=== PATIENT | male | born 1955 | race Caucasian/White ===

== ENCOUNTER 2016-12-05 17:41 | Emergency (ER) | payer BC ==
[2016-12-05 18:02] VITALS: BP 142/79
--- NOTE | 2016-12-05 18:24 | EDM.PDOC ---
ED HPI GENERAL MEDICAL PROBLEM - General Chief Complaint: Skin Complaint Stated Complaint: SKIN COMPLAINT Time Seen by Provider: 12/05/16 18:14 Source of Information: Reports: Patient History Limitations: Reports: No Limitations - History of Present Illness INITIAL COMMENTS - FREE TEXT/NARRATIVE: 61-year-old male presents to the ED with a painful swelling on his right upper back. He states the last 3 days he said his give a squeezing he's got out some purulent cheesy material suggesting sebaceous cyst. Unfortuneately the areas now become much more reddened and inflamed and more painful particularly if he lies back or sits against his seat of his truck.He otherwise feels fine with no systemic signs of illness such as fever chills nausea or vomiting. Appetite is good. Onset: Gradual Onset Date: 12/02/16 Duration: Day(s): Location: Reports: Back (right upper back over his scapula.) Quality: Reports: Ache, Burning, Throbbing Severity: Moderate Improves with: Reports: None Worsens with: Reports: Other Context: Denies: Activity (touching the area), Exercise, Lifting, Sick Contact, Trauma, Other Associated Symptoms: Reports: No Other Symptoms. Denies: cough w sputum Upper Back Pain Score (Numeric/FACES): 8 - Related Data Allergies Allergy/AdvReac Type Severity Reaction Status Date / Time No Known Allergies Allergy Verified 03/21/16 19:17 Home Meds: Home Meds Zolpidem [Ambien] 5 mg PO BEDTIME 03/21/16 [History] Doxycycline [Vibramycin] 100 mg PO Q12HR #20 cap 12/05/16 [Rx] Past Medical History HEENT History: Reports: Allergic Rhinitis Musculoskeletal History: Reports: Osteoarthritis Neurological History: Reports: Other (See Below) Dermatologic History: Reports: Other (See Below) Other Dermatologic History: fatty tumors - Past Surgical History HEENT Surgical History: Reports: Other (See Below) Musculoskeletal Surgical History: Reports: Hip Replacement Social & Family History - Tobacco Use Smoking Status *Q: Never Smoker - Caffeine Use Caffeine Use: Reports: Soda - Recreational Drug Use Recreational Drug Use: No - Living Situation & Occupation Living situation: Reports: , with Spouse Occupation: Employed ED ROS GENERAL - Review of Systems Review Of Systems: See Below Constitutional: Denies: Fever, Chills, Malaise, Weakness, Fatigue, Decreased Appetite, Weight Loss HEENT: Reports: No Symptoms Respiratory: Reports: No Symptoms Cardiovascular: Reports: No Symptoms Endocrine: Reports: No Symptoms GI/Abdominal: Reports: No Symptoms : Reports: No Symptoms Skin: Reports: Rash, Erythema (right upper back over his scapula.) Neurological: Reports: No Symptoms Psychiatric: Reports: No Symptoms Hematologic/Lymphatic: Reports: No Symptoms Immunologic: Reports: No Symptoms ED EXAM, SKIN/RASH Exam: See Below Exam Limited By: No Limitations General Appearance: Alert, WD/WN, No Apparent Distress Skin: Erythema, Other (patient appears to have a large lipoma probably 20 cm x 14 cm in size with this infected lesion in the inferior midline of this lipoma. The lesion has a raised surrounding area suggestive of a basal cell carcinoma. By history it's been expressing sebaceous material. It is surrounding cellulitis of about 7 cm x 5 cm. Very warm to palpation and moderately painful to touch.) Location, Skin: Back (right upper back over his shoulder blade towards the midline.) Characteristics: Maculopapular, Necrotic (chronic center) Associated features: Warmth, Tenderness, Swelling, Induration, Inflammation ED SKIN PROCEDURES - Additional/Other Procedure(s) Other (Free Text) Procedure(s): necrotic skin lesion excised completely from right upper back under local anesthetic using lidocaine 1% with epinephrine. Elliptical incision made approximate 1.5 cm in length and dissection of a deep sebaceous cyst completed. Wound was then closed using 5 sutures of 3-0 Ethilon. Tissue was sent for pathological analysis. Patient will have sutures removed in 10-12 days time. Course - Vital Signs Last Recorded V/S: Last Vital Signs Temp 36.8 C 12/05/16 18:01 Pulse 83 12/05/16 18:01 Resp 20 12/05/16 18:01 BP 142/79 H 12/05/16 18:01 Pulse Ox 98 12/05/16 18:01 - Orders/Labs/Meds Orders: Active Orders 24 hr Category Date Time Status Peripheral IV Care [RC] . DIRECTED Care 12/05/16 18:25 Active Sodium Chloride 0.9% [Saline Flush] Med 12/05/16 18:25 Active 10 ml FLUSH ASDIRECTED PRN Peripheral IV Insertion Adult [OM.PC] Stat Oth 12/05/16 18:25 Ordered Medication Orders Sodium Chloride (Saline Flush) 10 ml FLUSH ASDIRECTED PRN PRN Reason: Keep Vein Open Last Admin: 12/05/16 18:35 Dose: 10 ml Meds: Medications Generic Name Dose Route Start Last Admin Trade Name Fariba PRN Reason Stop Dose Admin Sodium Chloride 10 ml 12/05/16 18:25 12/05/16 18:35 Saline Flush FLUSH 10 ml ASDIRECTED PRN Administration Keep Vein Open Discontinued Medications Generic Name Dose Route Start Last Admin Trade Name Fremilo PRN Reason Stop Dose Admin Doxycycline Hyclate 200 mg 12/05/16 19:10 Vibramycin PO 12/05/16 19:11 ONETIME ONE Ceftriaxone Sodium 2 gm/ 100 mls @ 200 mls/hr 12/05/16 18:25 12/05/16 18:37 Sodium Chloride IV 12/05/16 18:54 200 mls/hr ONETIME ONE Administration Lidocaine/Epinephrine 20 ml 12/05/16 18:25 12/05/16 18:50 Xylocaine 1% With Epinephrine 1:100,000 INJECT 12/05/16 18:26 20 ml ONETIME ONE Administration Lidocaine/Epinephrine Confirm 12/05/16 18:29 12/05/16 18:53 Xylocaine 1% With Epinephrine 1:100,000 Administered 12/05/16 18:30 Not Given Dose [address] .[facility] ONE - Radiology Interpretation Free Text/Narrative:: 61-year-old male presents the ED with an infected skin lesion right upper mid back over his scapula. He appears to have underlying lipoma in this area and has an developed an infected sebaceous cyst by history which is is been squeezing the last 2-3 nights and expressing material. It has become secondarily infected over the last 24 hours with surrounding cellulitis of 7 x 5 cm. The lesion itself has a necrotic center and raised umbilical dictated border suggestive of a basal cell carcinoma however. I'm therefore going to excise the lesion in toto and sent to pathology for definitive diagnosis. Plan will be to cleanse the wound and then anesthetized with 1% lidocaine with epinephrine and excise it Departure - Departure Time of Disposition: 19:10 Disposition: Home, Self-Care 01 Condition: Fair Clinical Impression: Infected sebaceous cyst of skin Cellulitis Qualifiers: Site of cellulitis of trunk: back - Discharge Information Prescriptions: Doxycycline [Vibramycin] 100 mg PO Q12HR #20 cap Referrals: Isha Samuel, [facility] [employer] [Primary Care Provider] - Forms: ED Department Discharge Additional Instructions: evaluation the emergent today in regards to secondary healing infected skin lesion right upper back. History suggests this is most likely a sebaceous cyst as the has been able to squeeze out a purulent material it's slightly cheesy suggesting sebum. The lesion has a auto appearance with a raised umbilicated border and central necrosis. There is surrounding infection developing around this lesion called cellulitis. You were therefore treated with IV antibiotics --Rocephin 2 g in the ED. Also first dorsal doxycycline 200 mg was given by mouth. The skin lesion was excised under local anesthetic completely. It will be sent for pathological analysis but clinically it appears to be a sebaceous cyst. Wound was closed with 5 sutures. Treatment at home is Tylenol or Motrin for pain relief. Antibiotic is to be doxycycline 100 mg twice daily for 10 days. Daily cleanse wound with soap and water. Showering is okay. Then apply topical antibiotic such as bacitracin or Polysporin to the wound and cover with bandage to keep clean. Sutures will need to be removed in 10-12 days' time. - My Orders Last 24 Hours: My Active Orders 12/05/16 18:25 Peripheral IV Care [RC] . DIRECTED Sodium Chloride 0.9% [Saline Flush] 10 ml FLUSH ASDIRECTED PRN Peripheral IV Insertion Adult [OM.PC] Stat - Assessment/Plan Last 24 Hours: My Active Orders 12/05/16 18:25 Peripheral IV Care [RC] . DIRECTED Sodium Chloride 0.9% [Saline Flush] 10 ml FLUSH ASDIRECTED PRN Peripheral IV Insertion Adult [OM.PC] Stat
[2016-12-05] MEDS ORDERED: cefTRIAXone 2 GM in Sodium Chloride 0.9% 100 ML IV ONE (18:25)
[2016-12-05] MEDS ORDERED: Lidocaine 1% with EPINEPHrine 1:100,000 20 ML MDV INJECT ONE (18:25)
[2016-12-05] MEDS ORDERED: Sodium Chloride 0.9% 10 ML Syringe FLUSH PRN (18:25)
[2016-12-05] MEDS ORDERED: Lidocaine 1% with EPINEPHrine 1:100,000 20 ML MDV ONE (18:29)
[2016-12-05] MEDS ORDERED: Doxycycline 100 MG Cap PO ONE (19:10)
== END 2016-12-05 19:20 | disposition home or self-care (01) ==
LOC: JD.ED 17:41
DX: L72.3 Sebaceous cyst (principal); L08.9 Local infection of the skin and subcutaneous tissue, unspecified; M19.90 Unspecified osteoarthritis, unspecified site; Z96.649 Presence of unspecified artificial hip joint
CPT/HCPCS: 11042; 12001; 96365; 99284; A9270; J0696; J7030; J7050; 11402

== ENCOUNTER 2017-04-29 08:33 | Inpatient (IN) | payer BC, OTHER ==
[~2017-04-29 08:33] MED LIST: Dexamethasone 4 MG/ML SDV ONE; Lactated Ringers 1,000 ML IV SCH; Lidocaine 1% 4 ML ONE; Lidocaine 1%/Sod Bicarbonate in NS 8.4% 1 ML Syringe IDERM PRN; Morphine PF 10 MG/10 ML SDV ONE; Ondansetron 4 MG/2 ML SDV ONE; Propofol 200 MG/20 ML SDV ONE; Sodium Chloride 0.9% 10 ML Syringe FLUSH PRN; fentaNYL 100 MCG/2 ML SDV ONE
[2017-04-29] MEDS ORDERED: Midazolam 1 MG/ML 2 ML SDV ONE (08:41)
[2017-04-29] MEDS ORDERED: ceFAZolin 1 GM Vial ONE (08:42)
--- NOTE | 2017-04-29 09:08 | PCM.PREANE ---
Preanesthetic Assessment - Procedure Proposed Procedure: Right total hip replacement - Anesthesia/Transfusion/Family Hx Anesthesia History: Prior Anesthesia Without Reaction Family History of Anesthesia Reaction: No Transfusion History: Prior Transfusion Without Reaction Additional History: CLBP, fibromyalagia - Review of Systems General: No Symptoms Pulmonary: No Symptoms Cardiovascular: No Symptoms Gastrointestinal: No Symptoms Neurological: No Symptoms Other: Reports: None - Physical Assessment NPO Status Date: 04/28/17 NPO Status Time: 22:30 Pulse: 78 O2 Sat by Pulse Oximetry: 96 Respiratory Rate: 16 Blood Pressure: 142/92 Temperature: 37.0 C Height: 1.75 m Weight: 63.231 kg ASA Class: 2 Mental Status: Alert & Oriented x3 Airway Class: Mallampati = 1 Dentition: Reports: Normal Dentition Thyro-Mental Finger Breadths: 3 Mouth Opening Finger Breadths: 3 ROM/Head Extension: Full Lungs: Clear to Auscultation, Normal Respiratory Effort Cardiovascular: Regular Rate, Regular Rhythm - Lab Values: Laboratory Last Values MRSA (PCR) Negative 04/16/17 16:56 - Allergies Allergies/Adverse Reactions: Allergies Allergy/AdvReac Type Severity Reaction Status Date / Time No Known Allergies Allergy Verified 04/26/17 14:15 - Blood Blood Available: Yes - Anesthesia Plan Pre-Op Medication Ordered: None - Acknowledgements Anesthesia Type Planned: Spinal (with duramorph) Pt an Appropriate Candidate for the Planned Anesthesia: Yes Alternatives and Risks of Anesthesia Discussed w Pt/Guardian: Yes Pt/Guardian Understands and Agrees with Anesthesia Plan: Yes PreAnesthesia Questionnaire HEENT History: Reports: None Cardiovascular History: Reports: None Respiratory History: Reports: None Gastrointestinal History: Reports: None Genitourinary History: Reports: None Musculoskeletal History: Reports: Arthritis, Fibromyalgia Other Musculoskeletal History: Right finger mass, right hip pain, low back pain Neurological History: Reports: None Psychiatric History: Reports: Other (See Below) Other Psychiatric History: Insomnia Endocrine/Metabolic History: Reports: None Hematologic History: Reports: None Immunologic History: Reports: None Oncologic (Cancer) History: Reports: None Dermatologic History: Reports: Psoriasis Other Dermatologic History: fatty tumors - Infectious Disease History Infectious Disease History: Reports: None - Past Surgical History Head Surgeries/Procedures: HEENT Surgical History: Reports: None Cardiovascular Surgical History: Reports: None Respiratory Surgical History: Reports: None GI Surgical History: Reports: Colonoscopy Endocrine Surgical History: Reports: None Neurological Surgical History: Reports: None Other Musculoskeletal Surgeries/Procedures:: Left total hip replacement Oncologic Surgical History: Reports: None Dermatological Surgical History: Reports: None - SUBSTANCE USE Smoking Status *Q: Never Smoker Second Hand Smoke Exposure: No Recreational Drug Use History: No - HOME MEDS Home Medications: Home Meds Zolpidem [Ambien] 5 - 10 mg PO BEDTIME PRN 03/21/16 [History] Acetaminophen [Tylenol] 325 - 975 mg PO Q4H PRN 04/26/17 [History] Ascorbic Acid [Vitamin C] 1,000 mg PO DAILY 04/26/17 [History] Betamethasone Dipropionate [Diprolene 0.05% Gel] 1 applic TOP ASDIRECTED [History] Cyclobenzaprine [Flexeril] 10 mg PO TID PRN 04/26/17 [History] Naproxen Sodium [Aleve] 220 mg PO BID PRN 04/26/17 [History] - CURRENT (IN HOUSE) MEDS Current Meds: Current Medications Bisacodyl (Dulcolax) 5 mg PO DAILY PRN PRN Reason: Constipation Morphine Sulfate 8 mg/Epinephrine HCl 0.3 mg/Cefuroxime Sodium 750 mg/Ketorolac Tromethamine 30 mg/Sodium Chloride 27.9 ml 0 mg .XX ONETIME ONE Stop: 04/29/17 09:31 Cyclobenzaprine HCl (Flexeril) 10 mg PO TID PRN PRN Reason: Spasms Diphenhydramine HCl (Benadryl) 25 mg IVPUSH Q4H PRN PRN Reason: Nausea Docusate Sodium (Colace) 100 mg PO BID UMA Famotidine (Pepcid) 20 mg PO BID [facility] Lactated Ringer's (Ringers, Lactated) 1,000 mls @ 125 mls/hr IV ASDIRECTED [facility] Stop: 04/29/17 23:00 Cefazolin Sodium/Dextrose 2 gm (/ Premix) 50 mls @ 100 mls/hr IV Q8H [facility] Stop: 04/29/17 23:29 Ketorolac Tromethamine (Toradol) 15 mg IVPUSH Q6H PRN PRN Reason: Pain Lidocaine/Sodium Bicarbonate (Buffered Lidocaine 1% In Ns 8.4%) 0.25 ml IDERM ONETIME PRN PRN Reason: Prior to IV Start Stop: 04/29/17 18:00 Magnesium Hydroxide (Milk Of Magnesia) 30 ml PO BID PRN PRN Reason: Constipation Morphine Sulfate (Morphine) 2 mg IVPUSH Q2H PRN PRN Reason: Breakthrough Pain Naloxone HCl (Narcan) 0.1 mg IVPUSH Q5M PRN PRN Reason: Oversedation Oxycodone/Acetaminophen (Percocet 325-5 Mg) 1 - 2 tab PO Q4H PRN PRN Reason: Pain Rivaroxaban (Xarelto) 10 mg PO DAILY UMA Senna (Senna) 8.6 mg PO BID PRN PRN Reason: Constipation Sodium Chloride (Saline Flush) 10 ml FLUSH ASDIRECTED PRN PRN Reason: Keep Vein Open Stop: 04/29/17 18:00 Discontinued Medications Bupivacaine HCl (Marcaine 0.25%) Confirm Administered Dose 30 ml .ROUTE .STK- MED ONE Stop: 04/29/17 08:43 Cefazolin Sodium (Ancef) Confirm Administered Dose 2 gm .ROUTE .STK-MED ONE Stop: 04/29/17 08:30 Cefazolin Sodium (Ancef) Confirm Administered Dose 2 gm .ROUTE .STK-MED ONE Stop: 04/29/17 08:43 Dexamethasone (Dexamethasone) Confirm Administered Dose 4 mg .ROUTE .STK-MED ONE Stop: 04/29/17 08:30 Fentanyl (Sublimaze) Confirm Administered Dose 100 mcg .ROUTE .STK-MED ONE Stop: 04/29/17 08:27 Lidocaine HCl (Xylocaine-Mpf 1%) Confirm Administered Dose 4 mls @ as directed .ROUTE .STK-MED ONE Stop: 04/29/17 08:30 Iodine (Iodine 2% Mild Tincture) Confirm Administered Dose 30 ml .ROUTE .STK- MED ONE Stop: 04/29/17 08:43 Midazolam HCl (Versed 1 Mg/Ml) Confirm Administered Dose 2 mg .ROUTE .STK-MED ONE Stop: 04/29/17 08:42 Morphine Sulfate (Duramorph Pf) Confirm Administered Dose 10 mg .ROUTE .STK-MED ONE Stop: 04/29/17 08:27 Ondansetron HCl (Zofran) Confirm Administered Dose 4 mg .ROUTE .STK-MED ONE Stop: 04/29/17 08:30 Propofol (Diprivan 20 Ml) Confirm Administered Dose 600 mg .ROUTE .STK-MED ONE Stop: 04/29/17 08:27 Tranexamic Acid (Cyklokapron) Confirm Administered Dose 1,000 mg .ROUTE .STK- MED ONE Stop: 04/29/17 08:42 Vancomycin HCl (Vancomycin) Confirm Administered Dose 1 gm .ROUTE .STK-MED ONE Stop: 04/29/17 08:42
[2017-04-29] MEDS: ceFAZolin 1 GM Vial ONE ×2 (10:26→10:43)
[2017-04-29] MEDS: Iodine/Sodium Iodide 2% Tincture 30 ML Bottle ONE ×2 (10:27→10:41)
[2017-04-29] MEDS: Morphine 8 MG, EPINEPHrine 0.3 MG, Cefuroxime 750 MG, Ketorolac 30 MG, Sodium Chloride ... ONE ×10 (10:28→10:48)
[2017-04-29] MEDS: Bupivacaine 0.25% 30 ML SDV ONE ×2 (10:29→10:49)
[2017-04-29] MEDS ORDERED: ePHEDrine 50 MG/ML SDV ONE (10:30)
[2017-04-29] MEDS: Vancomycin 1 GM SDV ONE ×2 (10:30→10:52)
[2017-04-29] MEDS ORDERED: fentaNYL 100 MCG/2 ML SDV ONE (10:50)
[2017-04-29] MEDS ORDERED: Naloxone 0.4 MG/ML SDV IVPUSH PRN (11:00)
[2017-04-29] MEDS ORDERED: Ketorolac 15 MG/ML SDV IVPUSH PRN (11:00)
[2017-04-29] MEDS ORDERED: Magnesium Hydroxide 400 MG/5 ML Susp 30 ML Cup PO PRN (11:00)
[2017-04-29] MEDS ORDERED: diphenhydrAMINE 50 MG/ML SDV IVPUSH PRN ×2 (11:00→11:28)
[2017-04-29] MEDS ORDERED: Morphine 4 MG/ML Syringe IVPUSH PRN (11:00)
[2017-04-29] MEDS ORDERED: Bisacodyl 5 MG Tab PO PRN (11:00)
[2017-04-29] MEDS ORDERED: Sennosides 8.6 MG Tab PO PRN (11:00)
--- NOTE | 2017-04-29 11:22 | PCM.POSTAN ---
POST ANESTHESIA ASSESSMENT - MENTAL STATUS Mental Status: Alert, Oriented - VITAL SIGNS Pulse Rate: 84 SaO2: 100 Resp Rate: 17 Blood Pressure: 102/64 Temperature: 36.3 C - RESPIRATORY Respiratory Status: Respiratory Rate WNL, Airway Patent, O2 Saturation Stable, Supplemental Oxygen - CARDIOVASCULAR CV Status: Pulse Rate WNL, Blood Pressure Stable - GASTROINTESTINAL GI Status: No Symptoms - PAIN Pain Score: 0 - POST OP HYDRATION Hydration Status: Adequate & Stable
[2017-04-29] MEDS ORDERED: Ondansetron 4 MG/2 ML SDV IVPUSH PRN (11:28)
[2017-04-29] MEDS ORDERED: Meperidine PF 50 MG/ML Syringe IVPUSH PRN (11:28)
--- NOTE | 2017-04-29 11:55 | CR ---
Pelvis and right hip: AP view of the pelvis was obtained as well as lateral view of the right hip. Bilateral hip prosthesis are seen. Component on the right side has been placed recently. Components of both prosthesis are maintained. Underlying bony structures are intact. Soft tissue air is noted around the right hip prosthesis compatible with recent surgery. Impression: 1. Satisfactory radiographic appearance of recently placed right hip prosthesis. 2. Old left hip prosthesis is noted which appears within normal limits. Diagnostic code #2
[2017-04-29] MEDS ORDERED: Zolpidem 10 MG Tab PO PRN (12:11)
[2017-04-29] MEDS ORDERED: BETAMETHASONE DIPROPIONATE TOP SCH (12:15)
--- NOTE | 2017-04-29 16:00 | PCM.CONS ---
H&P History of Present Illness - General Date of Service: 04/29/17 Admit Problem/Dx: Admission Diagnosis/Problem Admission Diagnosis/Problem Osteoarthritis of hip Source of Information: Patient, Provider, RN, RN Notes Reviewed, Other ( surgical notes ) - History of Present Illness Initial Comments - Free Text/Narative: Teddy Medina is a 61 yo male patient of Dr. Messina who is post-operative day 0 of right DONNA. Hospital medicine was consulted for post-operative medical care. At this time he is resting comfortably in bed. Pain is completely absent. He denies any chest pain, shortness of breath, palpitations, nausea, or vomiting. He carries a history of: Arthritis, fibromyalgia, insomnia, psoriasis, prior left DONNA. He was never a smoker. He is a full code. His primary care provider is Isha Samuel at [facility]. - Related Data Allergies/Adverse Reactions: Allergies Allergy/AdvReac Type Severity Reaction Status Date / Time No Known Allergies Allergy Verified 04/29/17 09:25 Home Medications: Home Meds Zolpidem [Ambien] 5 - 10 mg PO BEDTIME PRN 03/21/16 [History] Acetaminophen [Tylenol] 325 - 975 mg PO Q4H PRN 04/26/17 [History] Ascorbic Acid [Vitamin C] 1,000 mg PO DAILY 04/26/17 [History] Betamethasone Dipropionate [Diprolene 0.05% Gel] 1 applic TOP ASDIRECTED [History] Cyclobenzaprine [Flexeril] 10 mg PO TID PRN 04/26/17 [History] Naproxen Sodium [Aleve] 220 mg PO BID PRN 04/26/17 [History] Cholecalciferol (Vitamin D3) [Vitamin D] 5,000 mg PO DAILY 04/29/17 [History] Past Medical History HEENT History: Reports: None Cardiovascular History: Reports: None Respiratory History: Reports: None Gastrointestinal History: Reports: None Genitourinary History: Reports: None Musculoskeletal History: Reports: Arthritis, Fibromyalgia Other Musculoskeletal History: Right finger mass, right hip pain, lower back pain Neurological History: Reports: None Psychiatric History: Reports: Other (See Below) Other Psychiatric History: Insomnia Endocrine/Metabolic History: Reports: None Hematologic History: Reports: None Immunologic History: Reports: None Oncologic (Cancer) History: Reports: None Dermatologic History: Reports: Psoriasis Other Dermatologic History: fatty tumors - Infectious Disease History Infectious Disease History: Reports: Chicken Pox, Measles, Mumps - Past Surgical History HEENT Surgical History: Reports: None Cardiovascular Surgical History: Reports: None Respiratory Surgical History: Reports: None GI Surgical History: Reports: Colonoscopy Endocrine Surgical History: Reports: None Neurological Surgical History: Reports: None Other Musculoskeletal Surgeries/Procedures:: Left total hip replacement, right total hip performed 04/29/17 Oncologic Surgical History: Reports: None Dermatological Surgical History: Reports: None Social & Family History - Family History Family Medical History: Noncontributory - Tobacco Use Smoking Status *Q: Never Smoker Second Hand Smoke Exposure: No - Caffeine Use Caffeine Use: Reports: Soda - Recreational Drug Use Recreational Drug Use: No Drug Use in Last 12 Months: No - Living Situation & Occupation Living situation: Reports: , with Spouse Occupation: Employed H&P Review of Systems - Review of Systems: Review Of Systems: See Below General: Reports: No Symptoms HEENT: Reports: No Symptoms Pulmonary: Reports: No Symptoms Cardiovascular: Reports: No Symptoms Gastrointestinal: Reports: No Symptoms Genitourinary: Reports: No Symptoms Musculoskeletal: Reports: No Symptoms, Joint Swelling (right hip ) Skin: Reports: No Symptoms Psychiatric: Reports: No Symptoms Neurological: Reports: No Symptoms Hematologic/Lymphatic: Reports: No Symptoms Immunologic: Reports: No Symptoms Exam - Exam Exam: See Below - Vital Signs Vital Signs: Last Vital Signs Temp 96.6 F 04/29/17 12:00 Pulse 71 04/29/17 12:31 Resp 11 L 04/29/17 12:00 BP 90/75 04/29/17 14:03 Pulse Ox 97 04/29/17 12:32 Weight: 139 lb - Exam Quality Assessment: Supplemental Oxygen, Urinary Catheter, DVT Prophylaxis General: Alert, Oriented, Cooperative HEENT: PERRLA, Hearing Intact, Mucosa Moist & [place], Nares Patent, Normal Nasal Septum, Posterior Pharynx Clear, Conjunctiva Clear, EOMI, EACs Clear, TMs Clear Neck: Supple, Trachea Midline. No: JVD Lungs: Clear to Auscultation, Normal Respiratory Effort Cardiovascular: Regular Rate, Regular Rhythm GI/Abdominal Exam: Normal Bowel Sounds, Soft, Non-Tender, No Organomegaly, No Distention, No Abnormal Bruit, No Mass, Pelvis Stable (Male) Exam: Deferred Rectal (Males) Exam: Deferred Back Exam: Normal Inspection, Full Range of Motion Extremities: No Pedal Edema, Normal Capillary Refill, Leg Pain, Limited Range of Motion, Other (LOYDA bandage on right leg. Bandages is dry and intact. Cooling pack in place ) Peripheral Pulses: 2+: Radial (L), Radial (R), Posterior Tibial (L), Posterior Tibial (R), Dorsalis Pedis (L), Dorsalis Pedis (R) Skin: Warm, Dry, Intact Neurological: Cranial Nerves Intact (grossly ) Neuro Extensive - Mental Status: Alert, Oriented x3, Normal Mood/Affect, Normal Cognition, Memory Intact Psychiatric: Alert, Normal Affect, Normal Mood - Patient Data Lab Results Last 24 hrs: Laboratory Results - last 24 hr 04/29/17 Range/Units 09:05 Blood Type O POSITIVE Gel Antibody Screen Negative Consult PN Assessment/Plan POD#: 0 Procedures: Procedures DEMAR SUBQ TISSUE 20 SQ CM/< (12/05/16) EMERGENCY DEPT VISIT (12/05/16) EMERGENCY DEPT VISIT (03/21/16) IMMUNIZATION ADMIN (01/25/15) PT EVALUATION (07/01/13) RPR F/E/E/N/L/M 2.5 CM/< (01/25/15) RPR S/N/AX/GEN/TRNK 2.5CM/< (12/05/16) TDAP VACCINE 7 YRS/> IM (01/25/15) THER/PROPH/DIAG IV INF INIT (12/05/16) THERAPEUTIC EXERCISES (07/17/13) (1) S/P total hip arthroplasty SNOMED Code(s): 416021005252 Code(s): Z96.649 - PRESENCE OF UNSPECIFIED ARTIFICIAL HIP JOINT Priority: High Current Visit: Yes Qualifiers: Laterality: right Qualified Code(s): Z96.641 - Presence of right artificial hip joint (2) Osteoarthritis SNOMED Code(s): 482697583 Code(s): M19.90 - UNSPECIFIED OSTEOARTHRITIS, UNSPECIFIED SITE Priority: High Current Visit: Yes Qualifiers: Osteoarthritis location: hip Osteoarthritis type: primary Laterality: right Qualified Code(s): M16.11 - Unilateral primary osteoarthritis, right hip (3) Arthritis SNOMED Code(s): 4501415 Code(s): M19.90 - UNSPECIFIED OSTEOARTHRITIS, UNSPECIFIED SITE Priority: Low Current Visit: No (4) Fibromyalgia SNOMED Code(s): 353102176 Code(s): M79.7 - FIBROMYALGIA Priority: Low Current Visit: No (5) Insomnia SNOMED Code(s): 456080324 Code(s): G47.00 - INSOMNIA, UNSPECIFIED Priority: Low Current Visit: No Qualifiers: Insomnia type: unspecified Qualified Code(s): G47.00 - Insomnia, unspecified (6) Psoriasis SNOMED Code(s): 2162217 Code(s): L40.9 - PSORIASIS, UNSPECIFIED Priority: Low Current Visit: No Problem List Initiated/Reviewed/Updated: Yes Plan: I/P: Acute: S/P right total hip arthroplasty - post-operative day 0 -DVT prophylaxis and pain management per primary care team -PT/OT -IS/RT -Monitor oxygen saturation -Titrate oxygen as needed -Vital signs stable -Monitor labs -Pre-operative Hgb was 13.9 -Pre-operative eGFR was >90 Osteoarthritis of right hip -Pain management per primary care team Chronic (home meds): Arthritis Fibromyalgia Insomnia Psoriasis Plan: CM for discharge planning GI prophylaxis Home medications as indicated Other orders as listed above Routine AM labs He is a full code. His PCP is Isha Samuel at [facility] Thank you for allowing us to participate in the care of this patient!! Total time spent with patient 25 minutes Requesting Provider: Dr. Messina Date Consult Requested: 04/29/17 Reason for Consult: Post-operative medical management Patient History Reviewed: Yes Admission H&P Reviewed: Yes Time Spent (in minutes): 25
[2017-04-29] MEDS: ceFAZolin 2 GM in Premix Bag 1 BAG IV SCH ×2 (16:56→23:56)
[2017-04-29] MEDS: Famotidine 20 MG Tab PO SCH (20:14)
[2017-04-29] MEDS: Docusate Sodium 100 MG Cap PO SCH (20:14)
[2017-04-29] MEDS: Acetaminophen/oxyCODONE 325-5 MG Tab PO PRN (20:14)
[2017-04-29] MEDS: Cyclobenzaprine 10 MG Tab PO PRN (23:14)
[2017-04-30] MEDS: Acetaminophen/oxyCODONE 325-5 MG Tab PO PRN ×3 (03:17→14:05)
--- NOTE | 2017-04-30 06:23 | PCM.CONSN ---
- General Info Date of Service: 04/30/17 Admission Dx/Problem (Free Text): Admission Diagnosis/Problem Admission Diagnosis/Problem Osteoarthritis of hip Subjective Update: In to see Teddy today. He is doing well. PT/OT reports no problems. He did have some difficulty with voiding this AM. Flomax was given and oral fluids were pushed. He responded well to this. He denies any other symptoms. No complaints currently. Vitals and labs have been good. PT/OT has no concerns. Functional Status: Reports: Pain Controlled, Tolerating Diet, Ambulating, Urinating, Incentive Spirometry. Denies: New Symptoms - Review of Systems General: Reports: No Symptoms HEENT: Reports: No Symptoms Pulmonary: Reports: No Symptoms Cardiovascular: Reports: No Symptoms Gastrointestinal: Reports: No Symptoms Genitourinary: Reports: No Symptoms Musculoskeletal: Reports: Joint Pain Skin: Reports: No Symptoms Neurological: Reports: No Symptoms Psychiatric: Reports: No Symptoms - Patient Data Vitals - Most Recent: Last Vital Signs Temp 98.1 F 04/30/17 03:23 Pulse 98 04/30/17 03:23 Resp 16 04/30/17 03:23 BP 115/70 04/30/17 03:23 Pulse Ox 97 04/30/17 03:23 Weight - Most Recent: 147 lb 4 oz I&O - Last 24 Hours: Intake & Output 04/29/17 04/29/17 04/30/17 14:59 22:59 06:59 Intake Total 390 1200 800 Output Total 375 1150 1020 Balance 15 50 -220 Lab Results Last 24 Hours: Laboratory Results - last 24 hr 04/29/17 Range/Units 09:05 Blood Type O POSITIVE Gel Antibody Screen Negative Med Orders - Current: Current Medications Bisacodyl (Dulcolax) 5 mg PO DAILY PRN PRN Reason: Constipation Cholecalciferol (Vitamin D3) 5,000 units PO DAILY [facility] Cyclobenzaprine HCl (Flexeril) 10 mg PO TID PRN PRN Reason: Spasms Last Admin: 04/29/17 23:14 Dose: 10 mg Diphenhydramine HCl (Benadryl) 25 mg IVPUSH Q4H PRN PRN Reason: Nausea Docusate Sodium (Colace) 100 mg PO BID [facility] Last Admin: 04/29/17 20:14 Dose: 100 mg Famotidine (Pepcid) 20 mg PO BID [facility] Last Admin: 04/29/17 20:14 Dose: 20 mg Cefazolin Sodium/Dextrose 2 gm (/ Premix) 50 mls @ 100 mls/hr IV Q8H [facility] Stop: 04/30/17 09:14 Last Admin: 04/29/17 23:56 Dose: 100 mls/hr Ketorolac Tromethamine (Toradol) 15 mg IVPUSH Q6H PRN PRN Reason: Pain Last Admin: 04/29/17 17:56 Dose: 15 mg Magnesium Hydroxide (Milk Of Magnesia) 30 ml PO BID PRN PRN Reason: Constipation Morphine Sulfate (Morphine) 2 mg IVPUSH Q2H PRN PRN Reason: Breakthrough Pain Naloxone HCl (Narcan) 0.1 mg IVPUSH Q5M PRN PRN Reason: Oversedation Oxycodone/Acetaminophen (Percocet 325-5 Mg) 1 - 2 tab PO Q4H PRN PRN Reason: Pain Last Admin: 04/30/17 03:17 Dose: 2 tab Betamethasone Dipropionate [ Diprolene 0.05% Gel] 1 Applic 0 each TOP ASDIRECTED [facility] Rivaroxaban (Xarelto) 10 mg PO DAILY [facility] Senna (Senna) 8.6 mg PO BID PRN PRN Reason: Constipation Zolpidem Tartrate (Ambien) 5 - 10 mg PO BEDTIME PRN PRN Reason: Insomnia Last Admin: 04/29/17 23:14 Dose: 10 mg Discontinued Medications Bupivacaine HCl (Marcaine 0.25%) Confirm Administered Dose 30 ml .ROUTE .STK- MED ONE Stop: 04/29/17 08:43 Last Admin: 04/29/17 10:49 Dose: 30 ml Cefazolin Sodium (Ancef) Confirm Administered Dose 2 gm .ROUTE .STK-MED ONE Stop: 04/29/17 08:30 Last Admin: 04/29/17 10:43 Dose: 2 gm Cefazolin Sodium (Ancef) Confirm Administered Dose 2 gm .ROUTE .STK-MED ONE Stop: 04/29/17 08:43 Morphine Sulfate 8 mg/Epinephrine HCl 0.3 mg/Cefuroxime Sodium 750 mg/Ketorolac Tromethamine 30 mg/Sodium Chloride 27.9 ml 0 mg .XX ONETIME ONE Stop: 04/29/17 09:31 Last Admin: 04/29/17 10:48 Dose: 788.3 mg Dexamethasone (Dexamethasone) Confirm Administered Dose 4 mg .ROUTE .STK-MED ONE Stop: 04/29/17 08:30 Diphenhydramine HCl (Benadryl) 25 mg IVPUSH Q6H PRN PRN Reason: Pruritis Stop: 04/29/17 18:00 Last Admin: 04/29/17 13:08 Dose: 25 mg Ephedrine Sulfate (Ephedrine Sulfate) Confirm Administered Dose 50 mg .ROUTE .STK-MED ONE Stop: 04/29/17 10:31 Fentanyl (Sublimaze) Confirm Administered Dose 100 mcg .ROUTE .STK-MED ONE Stop: 04/29/17 08:27 Fentanyl (Sublimaze) Confirm Administered Dose 100 mcg .ROUTE .STK-MED ONE Stop: 04/29/17 10:51 Lactated Ringer's (Ringers, Lactated) 1,000 mls @ 125 mls/hr IV ASDIRECTED [facility] Stop: 04/29/17 23:00 Last Admin: 04/29/17 09:00 Dose: 125 mls/hr Lidocaine HCl (Xylocaine-Mpf 1%) Confirm Administered Dose 4 mls @ as directed .ROUTE .STK-MED ONE Stop: 04/29/17 08:30 Iodine (Iodine 2% Mild Tincture) Confirm Administered Dose 30 ml .ROUTE .STK- MED ONE Stop: 04/29/17 08:43 Last Admin: 04/29/17 10:41 Dose: 18 ml Lidocaine/Sodium Bicarbonate (Buffered Lidocaine 1% In Ns 8.4%) 0.25 ml IDERM ONETIME PRN PRN Reason: Prior to IV Start Stop: 04/29/17 18:00 Last Admin: 04/29/17 07:59 Dose: 0.25 ml Meperidine HCl (Demerol) 12.5 mg IVPUSH ONETIME PRN PRN Reason: Shivering Stop: 04/29/17 16:00 Midazolam HCl (Versed 1 Mg/Ml) Confirm Administered Dose 2 mg .ROUTE .STK-MED ONE Stop: 04/29/17 08:42 Morphine Sulfate (Duramorph Pf) Confirm Administered Dose 10 mg .ROUTE .STK-MED ONE Stop: 04/29/17 08:27 Ondansetron HCl (Zofran) Confirm Administered Dose 4 mg .ROUTE .STK-MED ONE Stop: 04/29/17 08:30 Ondansetron HCl (Zofran) 4 mg IVPUSH ONETIME PRN PRN Reason: Nausea/Vomiting Stop: 04/29/17 16:00 Propofol (Diprivan 20 Ml) Confirm Administered Dose 600 mg .ROUTE .STK-MED ONE Stop: 04/29/17 08:27 Sodium Chloride (Saline Flush) 10 ml FLUSH ASDIRECTED PRN PRN Reason: Keep Vein Open Stop: 04/29/17 18:00 Tranexamic Acid (Cyklokapron) Confirm Administered Dose 1,000 mg .ROUTE .STK- MED ONE Stop: 04/29/17 08:42 Last Admin: 04/29/17 10:51 Dose: 1,000 mg Vancomycin HCl (Vancomycin) Confirm Administered Dose 1 gm .ROUTE .STK-MED ONE Stop: 04/29/17 08:42 Last Admin: 04/29/17 10:52 Dose: 1 gm - Exam Quality Assessment: DVT Prophylaxis General: Alert, Oriented, Cooperative, No Acute Distress HEENT: Pupils Equal, Pupils Reactive, EOMI, Mucous Membr. Moist/[place] Neck: Supple, Trachea Midline, No JVD Lungs: Clear to Auscultation, Normal Respiratory Effort Cardiovascular: Regular Rate, Regular Rhythm GI/Abdominal Exam: Normal Bowel Sounds, Soft, Non-Tender, No Organomegaly, No Distention, No Abnormal Bruit, No Mass, Pelvis Stable (Male) Exam: Deferred Back Exam: Normal Inspection, Full Range of Motion Extremities: No Pedal Edema, Normal Capillary Refill, Leg Pain, Limited Range of Motion, Other (Richard bandage in place on right leg. Cooling pack in place ) Peripheral Pulses: 2+: Radial (L), Radial (R), Dorsalis Pedis (L), Dorsalis Pedis (R) Skin: Warm, Dry, Intact Wound/Incisions: Dressing Dry and Intact, No Drainage Neurological: No New Focal Deficit Psy/Mental Status: Alert, Normal Affect, Normal Mood Consult PN Assessment/Plan POD#: 1 Procedures: Procedures DEMAR SUBQ TISSUE 20 SQ CM/< (12/05/16) EMERGENCY DEPT VISIT (12/05/16) EMERGENCY DEPT VISIT (03/21/16) IMMUNIZATION ADMIN (01/25/15) PT EVALUATION (07/01/13) RPR F/E/E/N/L/M 2.5 CM/< (01/25/15) RPR S/N/AX/GEN/TRNK 2.5CM/< (12/05/16) TDAP VACCINE 7 YRS/> IM (01/25/15) THER/PROPH/DIAG IV INF INIT (12/05/16) THERAPEUTIC EXERCISES (07/17/13) (1) S/P total hip arthroplasty SNOMED Code(s): 151205806437 Code(s): Z96.649 - PRESENCE OF UNSPECIFIED ARTIFICIAL HIP JOINT Priority: High Current Visit: Yes Qualifiers: Laterality: right Qualified Code(s): Z96.641 - Presence of right artificial hip joint (2) Osteoarthritis SNOMED Code(s): 613962049 Code(s): M19.90 - UNSPECIFIED OSTEOARTHRITIS, UNSPECIFIED SITE Priority: High Current Visit: Yes Qualifiers: Osteoarthritis location: hip Osteoarthritis type: primary Laterality: right Qualified Code(s): M16.11 - Unilateral primary osteoarthritis, right hip (3) Arthritis SNOMED Code(s): 1395133 Code(s): M19.90 - UNSPECIFIED OSTEOARTHRITIS, UNSPECIFIED SITE Priority: Low Current Visit: No (4) Fibromyalgia SNOMED Code(s): 333423892 Code(s): M79.7 - FIBROMYALGIA Priority: Low Current Visit: No (5) Insomnia SNOMED Code(s): 163435801 Code(s): G47.00 - INSOMNIA, UNSPECIFIED Priority: Low Current Visit: No Qualifiers: Insomnia type: unspecified Qualified Code(s): G47.00 - Insomnia, unspecified (6) Psoriasis SNOMED Code(s): 3389814 Code(s): L40.9 - PSORIASIS, UNSPECIFIED Priority: Low Current Visit: No Problem List Initiated/Reviewed/Updated: Yes Plan: I/P: Acute: S/P right total hip arthroplasty - post-operative day 1 -DVT prophylaxis and pain management per primary care team -PT/OT -IS/RT -Monitor oxygen saturation -Titrate oxygen as needed -Vital signs stable -Monitor labs -Pre-operative Hgb was 13.9, now 12.2 -Pre-operative eGFR was >90, now >60 Osteoarthritis of right hip -Pain management per primary care team Urinary retention, resolved -Straight cath'ed by nursing -Add flomax 0.4 -Push oral fluids -Has voided several times now Chronic (home meds): Arthritis Fibromyalgia Insomnia Psoriasis Plan: CM for discharge planning GI prophylaxis Home medications as indicated Other orders as listed above Routine AM labs He is a full code. His PCP is Isha Samuel at [facility] Thank you for allowing us to participate in the care of this patient!! From a hospitalist standpoint he is clear for discharge pending primary team agreement.
--- NOTE | 2017-04-30 07:21 | PCM.SURGPN ---
- General Info Date of Service: 04/30/17 POD#: 1 Functional Status: Reports: Pain Controlled, Tolerating Diet, Ambulating, Incentive Spirometry - Review of Systems Musculoskeletal: Reports: Other (The pt has progress well with therapies.) - Patient Data Vitals - Most Recent: Last Vital Signs Temp 98.1 F 04/30/17 03:23 Pulse 98 04/30/17 03:23 Resp 16 04/30/17 03:23 BP 115/70 04/30/17 03:23 Pulse Ox 97 04/30/17 03:23 Weight - Most Recent: 147 lb 4 oz I&O - Last 24 Hours: Intake & Output 04/29/17 04/30/17 04/30/17 22:59 06:59 14:59 Intake Total 1200 800 Output Total 1150 1020 Balance 50 -220 Lab Results Last 24 Hrs: Laboratory Results - last 24 hr 04/29/17 Range/Units 09:05 Blood Type O POSITIVE Gel Antibody Screen Negative Med Orders - Current: Current Medications Bisacodyl (Dulcolax) 5 mg PO DAILY PRN PRN Reason: Constipation Cholecalciferol (Vitamin D3) 5,000 units PO DAILY [facility] Cyclobenzaprine HCl (Flexeril) 10 mg PO TID PRN PRN Reason: Spasms Last Admin: 04/29/17 23:14 Dose: 10 mg Diphenhydramine HCl (Benadryl) 25 mg IVPUSH Q4H PRN PRN Reason: Nausea Docusate Sodium (Colace) 100 mg PO BID [facility] Last Admin: 04/29/17 20:14 Dose: 100 mg Famotidine (Pepcid) 20 mg PO BID [facility] Last Admin: 04/29/17 20:14 Dose: 20 mg Cefazolin Sodium/Dextrose 2 gm (/ Premix) 50 mls @ 100 mls/hr IV Q8H [facility] Stop: 04/30/17 09:14 Last Admin: 04/29/17 23:56 Dose: 100 mls/hr Ketorolac Tromethamine (Toradol) 15 mg IVPUSH Q6H PRN PRN Reason: Pain Last Admin: 04/29/17 17:56 Dose: 15 mg Magnesium Hydroxide (Milk Of Magnesia) 30 ml PO BID PRN PRN Reason: Constipation Morphine Sulfate (Morphine) 2 mg IVPUSH Q2H PRN PRN Reason: Breakthrough Pain Naloxone HCl (Narcan) 0.1 mg IVPUSH Q5M PRN PRN Reason: Oversedation Oxycodone/Acetaminophen (Percocet 325-5 Mg) 1 - 2 tab PO Q4H PRN PRN Reason: Pain Last Admin: 04/30/17 03:17 Dose: 2 tab Betamethasone Dipropionate [ Diprolene 0.05% Gel] 1 Applic 0 each TOP ASDIRECTED [facility] Rivaroxaban (Xarelto) 10 mg PO DAILY [facility] Senna (Senna) 8.6 mg PO BID PRN PRN Reason: Constipation Zolpidem Tartrate (Ambien) 5 - 10 mg PO BEDTIME PRN PRN Reason: Insomnia Last Admin: 04/29/17 23:14 Dose: 10 mg Discontinued Medications Bupivacaine HCl (Marcaine 0.25%) Confirm Administered Dose 30 ml .ROUTE .STK- MED ONE Stop: 04/29/17 08:43 Last Admin: 04/29/17 10:49 Dose: 30 ml Cefazolin Sodium (Ancef) Confirm Administered Dose 2 gm .ROUTE .STK-MED ONE Stop: 04/29/17 08:30 Last Admin: 04/29/17 10:43 Dose: 2 gm Cefazolin Sodium (Ancef) Confirm Administered Dose 2 gm .ROUTE .STK-MED ONE Stop: 04/29/17 08:43 Morphine Sulfate 8 mg/Epinephrine HCl 0.3 mg/Cefuroxime Sodium 750 mg/Ketorolac Tromethamine 30 mg/Sodium Chloride 27.9 ml 0 mg .XX ONETIME ONE Stop: 04/29/17 09:31 Last Admin: 04/29/17 10:48 Dose: 788.3 mg Dexamethasone (Dexamethasone) Confirm Administered Dose 4 mg .ROUTE .STK-MED ONE Stop: 04/29/17 08:30 Diphenhydramine HCl (Benadryl) 25 mg IVPUSH Q6H PRN PRN Reason: Pruritis Stop: 04/29/17 18:00 Last Admin: 04/29/17 13:08 Dose: 25 mg Ephedrine Sulfate (Ephedrine Sulfate) Confirm Administered Dose 50 mg .ROUTE .STK-MED ONE Stop: 04/29/17 10:31 Fentanyl (Sublimaze) Confirm Administered Dose 100 mcg .ROUTE .STK-MED ONE Stop: 04/29/17 08:27 Fentanyl (Sublimaze) Confirm Administered Dose 100 mcg .ROUTE .STK-MED ONE Stop: 04/29/17 10:51 Lactated Ringer's (Ringers, Lactated) 1,000 mls @ 125 mls/hr IV ASDIRECTED [facility] Stop: 04/29/17 23:00 Last Admin: 04/29/17 09:00 Dose: 125 mls/hr Lidocaine HCl (Xylocaine-Mpf 1%) Confirm Administered Dose 4 mls @ as directed .ROUTE .STK-MED ONE Stop: 04/29/17 08:30 Iodine (Iodine 2% Mild Tincture) Confirm Administered Dose 30 ml .ROUTE .STK- MED ONE Stop: 04/29/17 08:43 Last Admin: 04/29/17 10:41 Dose: 18 ml Lidocaine/Sodium Bicarbonate (Buffered Lidocaine 1% In Ns 8.4%) 0.25 ml IDERM ONETIME PRN PRN Reason: Prior to IV Start Stop: 04/29/17 18:00 Last Admin: 04/29/17 07:59 Dose: 0.25 ml Meperidine HCl (Demerol) 12.5 mg IVPUSH ONETIME PRN PRN Reason: Shivering Stop: 04/29/17 16:00 Midazolam HCl (Versed 1 Mg/Ml) Confirm Administered Dose 2 mg .ROUTE .STK-MED ONE Stop: 04/29/17 08:42 Morphine Sulfate (Duramorph Pf) Confirm Administered Dose 10 mg .ROUTE .STK-MED ONE Stop: 04/29/17 08:27 Ondansetron HCl (Zofran) Confirm Administered Dose 4 mg .ROUTE .STK-MED ONE Stop: 04/29/17 08:30 Ondansetron HCl (Zofran) 4 mg IVPUSH ONETIME PRN PRN Reason: Nausea/Vomiting Stop: 04/29/17 16:00 Propofol (Diprivan 20 Ml) Confirm Administered Dose 600 mg .ROUTE .STK-MED ONE Stop: 04/29/17 08:27 Sodium Chloride (Saline Flush) 10 ml FLUSH ASDIRECTED PRN PRN Reason: Keep Vein Open Stop: 04/29/17 18:00 Tranexamic Acid (Cyklokapron) Confirm Administered Dose 1,000 mg .ROUTE .STK- MED ONE Stop: 04/29/17 08:42 Last Admin: 04/29/17 10:51 Dose: 1,000 mg Vancomycin HCl (Vancomycin) Confirm Administered Dose 1 gm .ROUTE .STK-MED ONE Stop: 04/29/17 08:42 Last Admin: 04/29/17 10:52 Dose: 1 gm - Exam Wound/Incisions: Dressing Dry and Intact General: Alert, Cooperative, No Acute Distress Lungs: Normal Respiratory Effort Extremities: Other (NVS intact for RLE. Murphy's negative. Right thigh soft, nontender.) - Problem List Review Problem List Initiated/Reviewed/Updated: Yes - My Orders Last 24 Hours: Active Orders 24 hr Category Date Time Status Patient Status [ADT] Routine ADT 04/29/17 06:47 Active Ambulate [RC] PER UNIT ROUTINE Care 04/29/17 06:47 Active Antiembolic Devices [RC] PER UNIT ROUTINE Care 04/29/17 06:49 Active Communication Order [RC] ASDIRECTED Care 04/29/17 11:22 Active Cooling Warming Measures [RC] ASDIRECTED Care 04/29/17 11:22 Active Incentive Spirometry [RT Incentive Spirometry] [RC] Care 04/29/17 13:38 Active ASDIRECTED Insert Myrick Catheter [Insert Urinary Catheter] [OM.PC] Care 04/29/17 09:30 Ordered Q24H May Shower [RC] ASDIRECTED Care 04/29/17 06:47 Active Notify Provider Consults [RC] ASDIRECTED Care 04/29/17 06:49 Active Notify Provider [RC] ASDIRECTED Care 04/29/17 11:22 Active Oxygen Therapy [RC] PRN Care 04/29/17 06:47 Active Pulse Oximetry [RC] ASDIRECTED Care 04/29/17 11:28 Active Up to Chair [RC] ASDIRECTED Care 04/29/17 06:47 Active Vital Signs [RC] Q4H Care 04/29/17 06:47 Active Vital Signs [RC] Q4HR Care 04/29/17 11:28 Active Consult to Physician [CONS] Routine Cons 04/29/17 06:47 Active OT Evaluation and Treatment [CONS] Routine Cons 04/29/17 13:17 Active PT Evaluation and Treatment [CONS] Routine Cons 04/29/17 13:16 Active Regular Diet [DIET] Diet 04/29/17 Lunch Active Acetaminophen/oxyCODONE [Percocet 325-5 MG] Med 04/29/17 11:00 Active 1 - 2 tab PO Q4H PRN Bisacodyl [Dulcolax] Med 04/29/17 11:00 Active 5 mg PO DAILY PRN Cholecalciferol (Vitamin D3) [Vitamin D3] Med 04/30/17 09:00 Active 5,000 units PO DAILY Cyclobenzaprine [Flexeril] Med 04/29/17 11:00 Active 10 mg PO TID PRN Docusate Sodium [Colace] Med 04/29/17 21:00 Active 100 mg PO BID Famotidine [Pepcid] Med 04/29/17 21:00 Active 20 mg PO BID Ketorolac [Toradol] Med 04/29/17 11:00 Active 15 mg IVPUSH Q6H PRN Magnesium Hydroxide [Milk of Magnesia] Med 04/29/17 11:00 Active 30 ml PO BID PRN Morphine Med 04/29/17 11:00 Active 2 mg IVPUSH Q2H PRN Naloxone [Narcan] Med 04/29/17 11:00 Active 0.1 mg IVPUSH Q5M PRN Patient's Own Medication [Ptom] Med 04/29/17 12:15 Active 0 each TOP ASDIRECTED Rivaroxaban [Xarelto] Med 04/30/17 09:00 Pending 10 mg PO DAILY Sennosides [Senna] Med 04/29/17 11:00 Active 8.6 mg PO BID PRN Zolpidem [Ambien] Med 04/29/17 12:11 Active 5 - 10 mg PO BEDTIME PRN ceFAZolin [Ancef] 2 gm Med 04/29/17 16:45 Active Premix Bag 1 bag IV Q8H diphenhydrAMINE [Benadryl] Med 04/29/17 11:00 Active 25 mg IVPUSH Q4H PRN Antiembolic Hose [OM.PC] Per Unit Routine Oth 04/29/17 06:48 Ordered Hip Precautions Posterior [OM.PC] Routine Oth 04/29/17 06:47 Ordered Ice Therapy [OM.PC] Per Unit Routine Oth 04/29/17 06:48 Ordered Pulse Oximetry Continuous Monitoring [OM.PC] Routine Oth 04/29/17 11:28 Active Resuscitation Status Routine Resus Stat 04/29/17 06:47 Ordered Medication Orders Bisacodyl (Dulcolax) 5 mg PO DAILY PRN PRN Reason: Constipation Cholecalciferol (Vitamin D3) 5,000 units PO DAILY [facility] Cyclobenzaprine HCl (Flexeril) 10 mg PO TID PRN PRN Reason: Spasms Last Admin: 04/29/17 23:14 Dose: 10 mg Diphenhydramine HCl (Benadryl) 25 mg IVPUSH Q4H PRN PRN Reason: Nausea Docusate Sodium (Colace) 100 mg PO BID [facility] Last Admin: 04/29/17 20:14 Dose: 100 mg Famotidine (Pepcid) 20 mg PO BID [facility] Last Admin: 04/29/17 20:14 Dose: 20 mg Cefazolin Sodium/Dextrose 2 gm (/ Premix) 50 mls @ 100 mls/hr IV Q8H [facility] Stop: 04/30/17 09:14 Last Admin: 04/29/17 23:56 Dose: 100 mls/hr Infusion: 04/29/17 17:26 Dose: 100 mls/hr Admin: 04/29/17 16:56 Dose: 100 mls/hr Ketorolac Tromethamine (Toradol) 15 mg IVPUSH Q6H PRN PRN Reason: Pain Last Admin: 04/29/17 17:56 Dose: 15 mg Magnesium Hydroxide (Milk Of Magnesia) 30 ml PO BID PRN PRN Reason: Constipation Morphine Sulfate (Morphine) 2 mg IVPUSH Q2H PRN PRN Reason: Breakthrough Pain Naloxone HCl (Narcan) 0.1 mg IVPUSH Q5M PRN PRN Reason: Oversedation Oxycodone/Acetaminophen (Percocet 325-5 Mg) 1 - 2 tab PO Q4H PRN PRN Reason: Pain Last Admin: 04/30/17 03:17 Dose: 2 tab Admin: 04/29/17 20:14 Dose: 2 tab Betamethasone Dipropionate [ Diprolene 0.05% Gel] 1 Applic 0 each TOP ASDIRECTED [facility] Rivaroxaban (Xarelto) 10 mg PO DAILY [facility] Senna (Senna) 8.6 mg PO BID PRN PRN Reason: Constipation Zolpidem Tartrate (Ambien) 5 - 10 mg PO BEDTIME PRN PRN Reason: Insomnia Last Admin: 04/29/17 23:14 Dose: 10 mg - Assessment Assessment (Free Text/Narrative):: POD#1 - right DONNA - Plan Plan (Free Text/Narrative):: 1. Discharge to home today. 2. Xarelto, TEDs, frequent mobility. 3. Hgb 12.2. 4. Rx of urinary retention per Hospitalist service. The pt's case was discussed with Dr. Messina.
[2017-04-30] MEDS ORDERED: Tamsulosin 0.4 MG Cap.ER PO ONE (08:22)
[2017-04-30] MEDS ORDERED: Rivaroxaban 10 MG Tab PO SCH (09:00)
[2017-04-30] MEDS: Cholecalciferol (Vitamin D3) 1,000 Unit Tab PO SCH ×2 (09:11→09:13)
[2017-04-30] MEDS: Docusate Sodium 100 MG Cap PO SCH (09:11)
[2017-04-30] MEDS: Famotidine 20 MG Tab PO SCH (09:12)
[2017-04-30] MEDS: ceFAZolin 2 GM in Premix Bag 1 BAG IV SCH (09:12)
--- NOTE | 2017-04-30 11:40 | PCM48HPAN ---
Post Anesthesia Note - EVALUATION WITHIN 48HRS OF ANESTHETIC Vital Signs in Normal Range: Yes Patient Participated in Evaluation: Yes Respiratory Function Stable: Yes Airway Patent: Yes Cardiovascular Function Stable: Yes Hydration Status Stable: Yes Pain Control Satisfactory: Yes Nausea and Vomiting Control Satisfactory: Yes Mental Status Recovered: Yes Pulse Rate: 97 Resp Rate: 16 Temperature: 37.3 C Blood Pressure: 113/62 - COMMENTS/OBSERVATIONS Free Text/Narrative:: Patient did complain of slight nausea and pruritus yesterdays but is doing well today. Denies headaches, and back pain
--- NOTE | 2017-04-30 13:05 | PCM.DCSUM1 ---
Discharge Summary - Hospital Course Brief History: Teddy is a 61 yo male who underwent right DONNA with Dr. Messina on . The procedure was completed under spinal anesthesia. The pt tolerated the procedure well and was admitted to the Medical-Surgical Unit. Medical management was provided by the Hospitalist service. The pt's Hospital course was remarkable for urinary retention which was treated by the Hospitalist service. The pt's Hgb on POD#1 was 12.2. On POD#1, Xarelto daily was initiated for VTE prophylaxis. SCDs and TEDs were also ordered. A Mepilex dressing was placed at the incision site at the time of surgery and remained clean and dry. The pt participated in P.T. and O.T. and progressed well. He followed the DONNA precautions. The pt was allowed to WBAT. On POD#1, the pt was deemed appropriate to discharge to home. - Discharge Data Discharge Date: 04/30/17 Discharge Disposition: Home, Self-Care 01 Condition: Good - Patient Summary/Data Consults: Consultations 04/29/17 06:47 Consult to Physician [CONS] Routine 04/29/17 13:16 PT Evaluation and Treatment [CONS] Routine 04/29/17 13:17 OT Evaluation and Treatment [CONS] Routine - Patient Instructions Diet: Usual Diet as Tolerated Activity: Apply Ice, As Tolerated, Elevate Extremity, Full Weight Bearing Activity, Other: Total hip arthroplasty precautions. Driving: Do Not Drive Showering/Bathing: May Shower Wound/Incision Care: Keep Operative Site/Wound Site Clean and Dry, Do NOT Change Dressing Notify Provider of: Fever, Increased Pain, Swelling and Redness, Drainage, Nausea and/or Vomiting Other/Special Instructions: Please get up and moving around every hour while awake. This helps to prevent blood clots. Please use your walker and have help as needed. Take the Xarelto blood thinner medication daily. Do the exercises you were taught in the Hospital. Schedule for P.T. Follow the total hip arthroplasty precautions. Use the pain medication as needed. The medication may cause drowsiness and constipation. Contact your primary care provider for instructions if you are constipated. You may use a stool softener like docusate sodium or Colace 100mg twice daily and/or a laxative like Miralax daily for constipation. Try to wean from use of the pain medication as soon as able. Use the ice machine often. Elevate the limb to decrease swelling. Keep the Mepilex dressing in place until follow-up at the Clinic. Notify the Clinic if the dressing is saturated. Wear the GISELLA hose during the day and you may remove these at night. Eat a diet high in protein as this well help with healing. Schedule an appointment with your primary care provider for 'routine post-op care'. Call the Clinic with questions or concerns - [phone]. - Discharge Plan Prescriptions/Med Rec: Acetaminophen/oxyCODONE [Percocet 325-5 MG] 1 - 2 tab PO Q6H PRN #60 tablet PRN Reason: Pain Cyclobenzaprine [Flexeril] 10 mg PO TID PRN #40 tablet PRN Reason: Spasms Rivaroxaban [Xarelto] 10 mg PO DAILY #40 tablet Home Medications: Home Meds Zolpidem [Ambien] 5 - 10 mg PO BEDTIME PRN 03/21/16 [History] Betamethasone Dipropionate [Diprolene 0.05% Gel] 1 applic TOP ASDIRECTED [History] Cholecalciferol (Vitamin D3) [Vitamin D] 5,000 mg PO DAILY 04/29/17 [History] Acetaminophen [Tylenol] 325 - 975 mg PO Q4H PRN #0 04/30/17 [Rx] Acetaminophen/oxyCODONE [Percocet 325-5 MG] 1 - 2 tab PO Q6H PRN #60 tablet [Rx] Bisacodyl [Dulcolax] 5 mg PO DAILY PRN tablet 04/30/17 [Rx] Cyclobenzaprine [Flexeril] 10 mg PO TID PRN #40 tablet 04/30/17 [Rx] Famotidine [Pepcid] 20 mg PO BID tablet 04/30/17 [Rx] Magnesium Hydroxide [Milk of Magnesia] 30 ml PO BID PRN cup 04/30/17 [Rx] Rivaroxaban [Xarelto] 10 mg PO DAILY #40 tablet 04/30/17 [Rx] Sennosides [Senna] 8.6 mg PO BID PRN tablet 04/30/17 [Rx] Referrals: Jeanine Marquez PA-C [Physician [employer]] - - Patient Data Vitals - Most Recent: Last Vital Signs Temp 99.1 F 04/30/17 11:39 Pulse 97 04/30/17 11:39 Resp 16 04/30/17 11:39 BP 113/62 04/30/17 11:39 Pulse Ox 94 L 04/30/17 09:04 Weight - Most Recent: 147 lb 4 oz I&O - Last 24 hours: Intake & Output 04/29/17 04/30/17 04/30/17 22:59 06:59 14:59 Intake Total 1200 800 120 Output Total 1150 1020 Balance 50 -220 120 Lab Results - Last 24 hrs: Laboratory Results - last 24 hr 04/30/17 04/30/17 Range/Units 09:10 09:10 WBC 11.03 H (4.23-9.07) K/mm3 RBC 4.12 L (4.63-6.08) M/mm3 Hgb 12.2 L (13.7-17.5) gm/L Hct 36.8 L (40.1-51.0) % MCV 89.3 (79.0-92.2) fl MCH 29.6 (25.7-32.2) pg MCHC 33.2 (32.2-35.5) g/dl RDW Std Deviation 39.7 (35.1-43.9) fL Plt Count 193 (163-337) K/mm3 MPV 10.6 (9.4-12.3) fl Neut % (Auto) 78.8 H (34.0-67.9) % Lymph % (Auto) 11.8 L (21.8-53.1) % [place] % (Auto) 8.9 (5.3-12.2) % Eos % (Auto) 0.2 L (0.8-7.0) Baso % (Auto) 0.1 (0.1-1.2) % Neut # (Auto) 8.70 H (1.78-5.38) K/mm3 Lymph # (Auto) 1.30 L (1.32-3.57) K/mm3 [place] # (Auto) 0.98 H (0.30-0.82) K/mm3 Eos # (Auto) 0.02 L (0.04-0.54) K/mm3 Baso # (Auto) 0.01 (0.01-0.08) K/mm3 Sodium 138 (136-145) mEq/L Potassium 3.7 (3.5-5.1) mEq/L Chloride 104 (98-107) mEq/L Carbon Dioxide 23 (21-32) mEq/L Anion Gap 14.7 (5-15) BUN 17 (7-18) mg/dL Creatinine 1.0 (0.7-1.3) mg/dL Est Cr Clr Drug Dosing 72.36 mL/min Estimated GFR (MDRD) > 60 (>60) mL/min BUN/Creatinine Ratio 17.0 (14-18) Glucose 131 H (80-115) mg/dL Calcium 8.6 (8.5-10.1) mg/dL Total Bilirubin 0.5 (0.2-1.0) mg/dL AST 25 (15-37) U/L ALT 24 (16-63) U/L Alkaline Phosphatase 69 (46-116) U/L Total Protein 6.4 (6.4-8.2) g/dl Albumin 3.2 L (3.4-5.0) g/dl Globulin 3.2 gm/dL Albumin/Globulin Ratio 1.0 (1-2) Med Orders - Current: Current Medications Bisacodyl (Dulcolax) 5 mg PO DAILY PRN PRN Reason: Constipation Cholecalciferol (Vitamin D3) 5,000 units PO DAILY [facility] Last Admin: 04/30/17 09:13 Dose: 1,000 units Cyclobenzaprine HCl (Flexeril) 10 mg PO TID PRN PRN Reason: Spasms Last Admin: 04/29/17 23:14 Dose: 10 mg Diphenhydramine HCl (Benadryl) 25 mg IVPUSH Q4H PRN PRN Reason: Nausea Docusate Sodium (Colace) 100 mg PO BID [facility] Last Admin: 04/30/17 09:11 Dose: 100 mg Famotidine (Pepcid) 20 mg PO BID [facility] Last Admin: 04/30/17 09:12 Dose: 20 mg Ketorolac Tromethamine (Toradol) 15 mg IVPUSH Q6H PRN PRN Reason: Pain Last Admin: 04/29/17 17:56 Dose: 15 mg Magnesium Hydroxide (Milk Of Magnesia) 30 ml PO BID PRN PRN Reason: Constipation Morphine Sulfate (Morphine) 2 mg IVPUSH Q2H PRN PRN Reason: Breakthrough Pain Naloxone HCl (Narcan) 0.1 mg IVPUSH Q5M PRN PRN Reason: Oversedation Oxycodone/Acetaminophen (Percocet 325-5 Mg) 1 - 2 tab PO Q4H PRN PRN Reason: Pain Last Admin: 04/30/17 09:11 Dose: 2 tab Betamethasone Dipropionate [ Diprolene 0.05% Gel] 1 Applic 0 each TOP ASDIRECTED [facility] Rivaroxaban (Xarelto) 10 mg PO DAILY [facility] Last Admin: 04/30/17 11:35 Dose: 10 mg Senna (Senna) 8.6 mg PO BID PRN PRN Reason: Constipation Zolpidem Tartrate (Ambien) 5 - 10 mg PO BEDTIME PRN PRN Reason: Insomnia Last Admin: 04/29/17 23:14 Dose: 10 mg Discontinued Medications Bupivacaine HCl (Marcaine 0.25%) Confirm Administered Dose 30 ml .ROUTE .STK- MED ONE Stop: 04/29/17 08:43 Last Admin: 04/29/17 10:49 Dose: 30 ml Cefazolin Sodium (Ancef) Confirm Administered Dose 2 gm .ROUTE .STK-MED ONE Stop: 04/29/17 08:30 Last Admin: 04/29/17 10:43 Dose: 2 gm Cefazolin Sodium (Ancef) Confirm Administered Dose 2 gm .ROUTE .STK-MED ONE Stop: 04/29/17 08:43 Morphine Sulfate 8 mg/Epinephrine HCl 0.3 mg/Cefuroxime Sodium 750 mg/Ketorolac Tromethamine 30 mg/Sodium Chloride 27.9 ml 0 mg .XX ONETIME ONE Stop: 04/29/17 09:31 Last Admin: 04/29/17 10:48 Dose: 788.3 mg Dexamethasone (Dexamethasone) Confirm Administered Dose 4 mg .ROUTE .STK-MED ONE Stop: 04/29/17 08:30 Diphenhydramine HCl (Benadryl) 25 mg IVPUSH Q6H PRN PRN Reason: Pruritis Stop: 04/29/17 18:00 Last Admin: 04/29/17 13:08 Dose: 25 mg Ephedrine Sulfate (Ephedrine Sulfate) Confirm Administered Dose 50 mg .ROUTE .STK-MED ONE Stop: 04/29/17 10:31 Fentanyl (Sublimaze) Confirm Administered Dose 100 mcg .ROUTE .STK-MED ONE Stop: 04/29/17 08:27 Fentanyl (Sublimaze) Confirm Administered Dose 100 mcg .ROUTE .STK-MED ONE Stop: 04/29/17 10:51 Lactated Ringer's (Ringers, Lactated) 1,000 mls @ 125 mls/hr IV ASDIRECTED [facility] Stop: 04/29/17 23:00 Last Admin: 04/29/17 09:00 Dose: 125 mls/hr Cefazolin Sodium/Dextrose 2 gm (/ Premix) 50 mls @ 100 mls/hr IV Q8H [facility] Stop: 04/30/17 09:14 Last Admin: 04/30/17 09:12 Dose: 100 mls/hr Lidocaine HCl (Xylocaine-Mpf 1%) Confirm Administered Dose 4 mls @ as directed .ROUTE .STK-MED ONE Stop: 04/29/17 08:30 Iodine (Iodine 2% Mild Tincture) Confirm Administered Dose 30 ml .ROUTE .STK- MED ONE Stop: 04/29/17 08:43 Last Admin: 04/29/17 10:41 Dose: 18 ml Lidocaine/Sodium Bicarbonate (Buffered Lidocaine 1% In Ns 8.4%) 0.25 ml IDERM ONETIME PRN PRN Reason: Prior to IV Start Stop: 04/29/17 18:00 Last Admin: 04/29/17 07:59 Dose: 0.25 ml Meperidine HCl (Demerol) 12.5 mg IVPUSH ONETIME PRN PRN Reason: Shivering Stop: 04/29/17 16:00 Midazolam HCl (Versed 1 Mg/Ml) Confirm Administered Dose 2 mg .ROUTE .STK-MED ONE Stop: 04/29/17 08:42 Morphine Sulfate (Duramorph Pf) Confirm Administered Dose 10 mg .ROUTE .STK-MED ONE Stop: 04/29/17 08:27 Ondansetron HCl (Zofran) Confirm Administered Dose 4 mg .ROUTE .STK-MED ONE Stop: 04/29/17 08:30 Ondansetron HCl (Zofran) 4 mg IVPUSH ONETIME PRN PRN Reason: Nausea/Vomiting Stop: 04/29/17 16:00 Propofol (Diprivan 20 Ml) Confirm Administered Dose 600 mg .ROUTE .STK-MED ONE Stop: 04/29/17 08:27 Sodium Chloride (Saline Flush) 10 ml FLUSH ASDIRECTED PRN PRN Reason: Keep Vein Open Stop: 04/29/17 18:00 Tamsulosin HCl (Flomax) 0.4 mg PO ONETIME ONE Stop: 04/30/17 08:23 Last Admin: 04/30/17 09:11 Dose: 0.4 mg Tranexamic Acid (Cyklokapron) Confirm Administered Dose 1,000 mg .ROUTE .STK- MED ONE Stop: 04/29/17 08:42 Last Admin: 04/29/17 10:51 Dose: 1,000 mg Vancomycin HCl (Vancomycin) Confirm Administered Dose 1 gm .ROUTE .STK-MED ONE Stop: 04/29/17 08:42 Last Admin: 04/29/17 10:52 Dose: 1 gm *Q Meaningful Use (DIS) - VTE *Q VTE Criteria *Q: - Stroke *Q Stroke Criteria *Q: - AMI *Q AMI Criteria *Q:
[2017-04-30 13:29] VITALS: BP 109/67
[2017-04-30] MEDS: Cyclobenzaprine 10 MG Tab PO PRN (14:05)
--- NOTE | 2017-05-05 21:34 | PCM.OPNOTE ---
- General Post-Op/Procedure Note Date of Surgery/Procedure: 04/29/17 Operative Procedure(s): right total hip arthroplasty Pre Op Diagnosis: right hip osteoarthrosis Post-Op Diagnosis: Same Anesthesia Technique: Local, MAC, Spinal Primary Surgeon: Nicholas Messina Anesthesia Provider: Jose Miguel Ribeiro [facility] Type Technician: Jeanine Marquez EBL in mLs: 250 Complications: None Condition: Good
--- NOTE | 2017-05-05 22:34 | OR ---
DATE OF OPERATION: 04/29/2017 SURGEON: Nicholas Messina MD OPERATION PERFORMED: Right total hip arthroplasty. PREOPERATIVE DIAGNOSIS: Right hip osteoarthrosis. POSTOPERATIVE DIAGNOSIS: Right hip osteoarthrosis. ANESTHESIA TECHNIQUE: Local MAC with spinal. ANESTHESIA PROVIDER: Jose Miguel Ribeiro. ASSISTANTS: Jeanine Marquez PA-C. ESTIMATED BLOOD LOSS: 250 mL. COMPLICATIONS: None. CONDITION: Stable. IMPLANTS: 1. Natalia size 54 mm PSL hemispherical cup. 2. Alderson size 6 Accolade II stem. 3. Natalia size 36 + 7 mm ceramic femoral head. DESCRIPTION OF PROCEDURE: The patient was identified in the preop holding area, where proper site was marked and identified by the surgeon. The patient was taken back to the operating theater, where after adequate anesthesia, the patient was placed in a left lateral decubitus position. Axillary roll was placed. All bony prominences were well-padded. Pegs were then placed and well-padded. The patient's gluteal fold was parallel to the floor. Right hip was then sterilely prepped and draped in the usual sterile fashion. OR time-out was performed. The patient received 2 g of IV Ancef. At this time, standard incision was made centered over the greater trochanter. This was taken down to the IT band and gluteal fascia, which was incised along the incisional length. Charnley retractor was then placed. Short external rotators were identified and takedown of the short external rotators was then done from the piriformis down to the level of the lesser trochanter. A capsulotomy was also performed. Hip was then dislocated. Neck cut guide was then placed. The neck cut was completed. At this time, attention was turned to the acetabulum. Anterior and posterior acetabular retractors were placed and starting with a size 46 reamer, I was able to ream up to a 54 for a 54 mm PSL cup. At this time, the PSL cup was impacted into place at roughly 45 degrees of abduction and 20 degrees of anteversion. At this time, 36 mm elevated 10 degree elevated liner was impacted into place. Attention was turned to the femur. Femoral elevator was then placed. Box chisel was used and Starter awl was placed down the canal. Starting with 0 broach, I was able to broach up to a size 6, was found to be rotationally and vertically stable. At this time, we trialed a 0 head, but it was found to be likely short on leg lengths; so, +7 was trialed, it was found to have adequate synagogue of leg lengths, and was stable throughout range of motion. At this time, the hip was dislocated. A size 6 Accolade II stem was impacted into place along with a 36 + 7 mm ceramic femoral head. At this time, the hip was relocated. A 1 liter dilute Betadine solution was irrigated through the hip along with 3 liters of pulse lavage irrigation with Ancef. Periarticular injection was then completed. Vancomycin powder along with topical tranexamic acid was placed. One #5 Ethibond suture was used for closure of the short external rotators and capsule. A #2 barbed suture was used for closure of the IT band and gluteal fascia, 2-0 Vicryl was used subcutaneously, and Prineo was used for the skin. The patient tolerated the procedure well and was sent to PACU in stable condition. ANESTHESIA: GOMEZ /[id number]
== END 2017-04-30 14:27 | disposition home or self-care (01) | DRG 470 ==
LOC: JD.MS 08:33
PROVIDERS: ADMIT Orthopaedic Surgery; ATTEND Orthopaedic Surgery
PROC: 0SR9039 Replacement of Right Hip Joint with Ceramic Synthetic Substitute, Cemented, Open Approach (ICD-10-PCS; principal; 2017-04-29)
DX: M16.11 Unilateral primary osteoarthritis, right hip (principal); M79.7 Fibromyalgia; J30.2 Other seasonal allergic rhinitis; G47.00 Insomnia, unspecified; L40.9 Psoriasis, unspecified; Z96.642 Presence of left artificial hip joint; Z79.899 Other long term (current) drug therapy
CPT/HCPCS: 01214; 36415; 51701; 51798; 73501-26-RT; 73501-RT; 80053; 85025; 86850; 86900; 86901; 87641; 94762; 97110-GP; 97116-GP; 97161-GP; 97165-GO; 97530-GP; 97535-GO; A9270-GY; C1776; J0171; J0690; J0697; J1100; J1200; J1885; J2001; J2250; J2270; J2405; J2704; J3010; J3370; J3490; J7120

== ENCOUNTER 2019-02-04 02:12 | Emergency (ER) | payer BC ==
[2019-02-04 02:35] VITALS: BP 148/96; PULSE 89
[2019-02-04] MEDS ORDERED: Orphenadrine 100 MG Tab.ER PO STA (03:25)
--- NOTE | 2019-02-04 03:31 | EDM.PDOC ---
ED HPI GENERAL MEDICAL PROBLEM - General Chief Complaint: Neck Problem Stated Complaint: HEAD AND NECK PAIN Time Seen by Provider: 02/04/19 02:55 Source of Information: Reports: Patient, Family () History Limitations: Reports: No Limitations - History of Present Illness INITIAL COMMENTS - FREE TEXT/NARRATIVE: Mr. Medina is a very pleasant 63-year-old man with a past medical history significant for insomnia, for which he has been taking Ambien for years. He states that he has been suffering from vivid nightmares for the past 2 months - not every night, but many. He states that he took half on an Ambien before he went to bed and fell asleep quickly. He then dreamt that someone was chasing him with a gun. He believes that he jumped out of bed and struck a nearby wall, falling backwards. He woke to find himself on the floor with lower left neck pain. He denies any other injury, and he denies having a headache. No tingling, numbness, weakness, or radicular pain. The patient states that he has a history of osteoarthritis, but no prior neck issues. He did not take any [id number] or home remedies prior to coming to the ED. The patient's PCP is Savana Chiu NP. He has received an influenza vaccine this season. cervical spine Pain Score (Numeric/FACES): 7 - Related Data Allergies Allergy/AdvReac Type Severity Reaction Status Date / Time No Known Allergies Allergy Verified 02/04/19 02:23 Home Meds: Home Meds Zolpidem [Ambien] 10 mg PO BEDTIME PRN 03/21/16 [History] Betamethasone Dipropionate [Diprolene 0.05% Gel] 1 applic TOP ASDIRECTED [History] Acetaminophen [Tylenol] 325 - 975 mg PO Q4H PRN #0 04/30/17 [Rx] Cyclobenzaprine [Flexeril] 10 mg PO TID PRN #40 tablet 04/30/17 [Rx] DULoxetine [Cymbalta] 60 mg PO DAILY 01/24/19 [History] Orphenadrine [Norflex] 1 tab PO Q12H PRN #14 tab.er 02/04/19 [Rx] Past Medical History HEENT History: Reports: Allergic Rhinitis Cardiovascular History: Reports: High Cholesterol Musculoskeletal History: Reports: Osteoarthritis Psychiatric History: Reports: Other (See Below) (Insomnia) Dermatologic History: Reports: Psoriasis - Infectious Disease History Infectious Disease History: Reports: Chicken Pox, Measles, Mumps - Past Surgical History HEENT Surgical History: Reports: Other (See Below) (Cleft palate repair) GI Surgical History: Reports: Colonoscopy Musculoskeletal Surgical History: Reports: Hip Replacement (bilateral), Other ( See Below) (Right 5th finger tendon repair. Left elbow surgery.) Social & Family History - Family History Family Medical History: Noncontributory - Tobacco Use Smoking Status *Q: Never Smoker - Caffeine Use Caffeine Use: Reports: None - Alcohol Use Alcohol Use History: Yes Alcohol Use Frequency: Socially - Recreational Drug Use Recreational Drug Use: No - Living Situation & Occupation Living situation: Reports: , with Spouse, with Family (Daughter) Occupation: Employed (Resident Intern) ED ROS GENERAL - Review of Systems Review Of Systems: Comprehensive ROS is negative, except as noted in HPI. ED EXAM, UPPER BACK/NECK PAIN - Physical Exam Exam: See Below Exam Limited By: No Limitations General Appearance: Alert, WD/WN, No Apparent Distress Eye Exam: Bilateral Eye: EOMI, Normal Inspection Ears Exam: Normal External Exam, Hearing Grossly Normal Nose Exam: Normal Inspection Throat/Mouth Exam: Normal Inspection, Normal Lips, Normal Voice, No Airway Compromise Head Exam: Atraumatic, Normocephalic Neck Exam: Limited Range of Motion (In extension only. Painless ROM.), Paraspinous Muscle Tender (lower left only). No: Spinous Processes Tender, Tender Midline Course - Vital Signs Last Recorded V/S: Last Vital Signs Temp 37.0 C 02/04/19 02:28 Pulse 89 02/04/19 02:28 Resp 16 02/04/19 02:28 BP 148/96 H 02/04/19 02:28 Pulse Ox 95 02/04/19 02:28 - Orders/Labs/Meds Meds: Medications Discontinued Medications Generic Name Dose Route Start Last Admin Trade Name Freq PRN Reason Stop Dose Admin Orphenadrine Citrate 100 mg 02/04/19 03:25 02/04/19 03:36 Norflex PO 02/04/19 03:26 100 mg ONETIME STA Administration - Re-Assessments/Exams Free Text/Narrative Re-Assessment/Exam: 02/04/19 03:26 The patient's history and physical exam indicate that he strained his lower left neck musculature, but there is no injury to his cervical vertebrae, therefore no imaging studies are indicated. For tonight's purposes, I will start the patient on Norflex, and prescribe a 7 day course. The patient can take his usual dlka-lgt-jzeryer Aleve along with it. He should stop taking the cyclobenzaprine. Departure - Departure Time of Disposition: 03:27 Disposition: Home, Self-Care 01 Condition: Good Clinical Impression: Neck muscle strain - Discharge Information *PRESCRIPTION DRUG MONITORING PROGRAM REVIEWED*: Not Applicable *COPY OF PRESCRIPTION DRUG MONITORING REPORT IN PATIENT BISMARK: Not Applicable Prescriptions: Orphenadrine [Norflex] 1 tab PO Q12H PRN #14 tab.er PRN Reason: Muscle Spasm Instructions: Muscle Strain Referrals: Savana Chiu NP [Primary Care Provider] - Forms: ED Department Discharge Additional Instructions: You were seen in the emergency room after suffering a nightmare, getting up and falling, injuring your lower left neck. Based on your history and physical examination, you have most likely strained the muscles of your lower left neck. You have been started on the muscle relaxant Norflex. A prescription for Norflex has been sent to the [facility], located in the [place] store. Take one tablet of Norflex every 12 hours, starting this evening, 02/04/2019, as prescribed. It is very important that if you take Norflex, you are not to take your previously prescribed cyclobenzaprine (Flexeril) In addition to Norflex, we recommend that you continue to take hnre-svi-pevmyrf Aleve, every 12 hours, with food, as needed for discomfort. If the Norflex works for you, please follow-up with your PCP, Savana Chiu NP , for an additional prescription. If any other problems, please do not hesitate to return to the ER.
== END 2019-02-04 03:37 | disposition home or self-care (01) ==
LOC: JD.ED 02:12
DX: S16.1XXA Strain of muscle, fascia and tendon at neck level, initial encounter (principal); G47.00 Insomnia, unspecified; Z79.899 Other long term (current) drug therapy; X58.XXXA Exposure to other specified factors, initial encounter; Y93.84 Activity, sleeping
CPT/HCPCS: 99283; A9270

== ENCOUNTER 2022-05-04 11:02 | Day surgery (SDC) | payer MEDICARE, OTHER ==
[~2022-05-04 11:02] MED LIST changes: +Acetaminophen 325 MG Tab PO SCH; -Dexamethasone 4 MG/ML SDV ONE; +Gabapentin 300 MG Cap PO SCH; -Lactated Ringers 1,000 ML IV SCH; -Lidocaine 1% 4 ML ONE; +Lidocaine 1% 5 ML VIAL ONE; -Lidocaine 1%/Sod Bicarbonate in NS 8.4% 1 ML Syringe IDERM PRN; +Midazolam 1 MG/ML 2 ML SDV ONE; -Morphine PF 10 MG/10 ML SDV ONE; -Sodium Chloride 0.9% 10 ML Syringe FLUSH PRN
[2022-05-04] MEDS ORDERED: Lidocaine 1% with EPINEPHrine 1:100,000 20 ML MDV ONE (11:07)
[2022-05-04] MEDS ORDERED: Bupivacaine 0.25%/EPINEPHrine 1:200,000 30 ML SDV ONE (11:07)
[2022-05-04] MEDS ORDERED: Lactated Ringers 1,000 ML IV SCH (11:30)
[2022-05-04] MEDS ORDERED: Propofol 200 MG/20 ML SDV ONE ×2 (11:31→14:01)
[2022-05-04] MEDS ORDERED: Metoclopramide 10 MG/2 ML SDV ONE (11:42)
[2022-05-04] MEDS ORDERED: ceFAZolin 2 GM Vial ONE (13:13)
[2022-05-04] MEDS ORDERED: Lactated Ringers 1,000 ML ONE (13:31)
[2022-05-04] MEDS ORDERED: Ketorolac 15 MG/ML SDV ONE (14:09)
[2022-05-04 15:48] VITALS: BP 120/70; PULSE 84
== END 2022-05-04 15:35 | disposition home or self-care (01) ==
LOC: JD.SDS 11:02
PROVIDERS: ATTEND Surgery
DX: K40.90 Unilateral inguinal hernia, without obstruction or gangrene, not specified as recurrent (principal); M79.7 Fibromyalgia; M19.90 Unspecified osteoarthritis, unspecified site; G47.30 Sleep apnea, unspecified; L40.9 Psoriasis, unspecified; F17.200 Nicotine dependence, unspecified, uncomplicated; E78.00 Pure hypercholesterolemia, unspecified; Z98.890 Other specified postprocedural states; Z79.899 Other long term (current) drug therapy; Z91.048 Other nonmedicinal substance allergy status
CPT/HCPCS: 49505; 87641; A9270; J0690; J1885; J2250; J2405; J2704; J2765; J3010; J7120; C1781; J3490

== ENCOUNTER 2024-04-28 08:33 | Emergency (ER) | payer MEDICARE, OTHER ==
[2024-04-28 09:10] VITALS: BP 91/75; PULSE 100
[2024-04-28 09:58] LABS: BASOPHILS PERCENT AUTO 0.1 % (0.0-1.0); EOSINOPHILS ABSOLUTE AUTO 0.1 K/mm3 (0.0-0.4); EOSINOPHILS PERCENT AUTO 0.6 % (0.0-6.0); HEMATOCRIT 40.2 % (42.0-52.0); HEMOGLOBIN 13.5 gm/dl (14.0-18.0); IMMATURE GRAN ABSOLUTE AUTO 0.12 K/mm3 (0.00-0.05); IMMATURE GRAN PERCENT AUTO 0.8 % (0.0-0.4); LYMPHOCYTES ABSOLUTE AUTO 1.1 K/mm3 (1.0-4.8); LYMPHOCYTES PERCENT AUTO 7.4 % (24.0-44.0); MEAN CORPUSCULAR HEMOGLOBIN 29.2 pg (28.0-32.0); MEAN CORPUSCULAR HGB CONC 33.6 g/dl (32.0-36.0); MEAN PLATELET VOLUME 10.4 fl (9.4-12.4); MONOCYTES ABSOLUTE AUTO 1.4 K/mm3 (0.0-0.8); MONOCYTES PERCENT AUTO 9.2 % (0.0-8.0); NEUTROPHILS ABSOLUTE AUTO 12.2 K/mm3 (1.8-7.7); NEUTROPHILS PERCENT AUTO 81.9 % (41.0-71.0); PLATELET COUNT,PLT 266 K/mm3 (150-400); RED BLOOD CELL COUNT 4.62 M/mm3 (4.52-5.90); WHITE BLOOD CELL COUNT,WBC 14.93 K/mm3 (3.9-11.3)
[2024-04-28 10:16] LABS: A/G RATIO 0.8 (1-2); ALBUMIN 2.8 g/dl (3.4-5.0); ANION GAP 13.1 (5-15); BILIRUBIN TOTAL 0.6 mg/dL (0.2-1.0); C-REACTIVE PROTEIN 6.7 mg/dL (<0.30); CALCIUM 8.6 mg/dL (8.5-10.1); EST CRCL DRUG DOSING (CG) 62.71 mL/min; POTASSIUM,K 4.1 mEq/L (3.5-5.1); PROTEIN TOTAL,TP 6.3 g/dl (6.4-8.2)
== END 2024-04-28 11:26 | disposition home or self-care (01) ==
LOC: JD.ED 08:33
DX: J40 Bronchitis, not specified as acute or chronic (principal); E78.00 Pure hypercholesterolemia, unspecified; Z79.899 Other long term (current) drug therapy
CPT/HCPCS: 36415; 71046; 71046-26; 80053; 85025; 86140; 99283; 99285